=== PATIENT | female | born 1985 | race American Indian/Alaskan Native ===

== ENCOUNTER 2017-08-17 15:21 | Outpatient (CLI) | payer OTHER, MEDICAID ==
[2017-08-17 15:52] VITALS: BP 120/78
[2017-08-17 16:27] LABS: Bilirubin,Urine NEG (Negative); Blood,Urine NEG (Negative); Color,Urine Yellow (Yellow); Mucus,Urine FEW /HPF; Nitrite,Urine NEG (Negative); Protein,Urine <15 mg/dL mg/dL (Negative); Urobilinogen,Urine < 2.0 mg/dL (<2.0); WBC,Urine < 1.0 /HPF (0.0-6.0)
[2017-08-17] MEDS ORDERED: LACTATED RINGERS 500 ML IV ONE (17:55)
== END 2017-08-17 17:16 | disposition home or self-care (01) ==
LOC: TRG 15:21
PROVIDERS: ATTEND Obstetrics & Gynecology
DX: O47.02 False labor before 37 completed weeks of gestation, second trimester (principal); Z3A.25 25 weeks gestation of pregnancy
CPT/HCPCS: 81001